=== PATIENT | male | born 1950 | race Caucasian/White ===

== ENCOUNTER 2024-06-17 08:10 | Emergency (ER) | payer MEDICARE ==
[~2024-06-17] VITALS: Ht 175.3 cm; Wt 114.0 kg
[2024-06-17] MEDS ORDERED: METHYLPREDNISOLO4 M1 PO (09:27)
[2024-06-17] MEDS ORDERED: HYDROCODON-ACE1 EA11 PO (09:27)
[2024-06-17] MEDS ORDERED: LIDOCAINE HCL 4% 1 EACH PATCH TD ONE (09:30)
[2024-06-17] MEDS ORDERED: KETOROLAC TROMETHAMINE 30 MG/ML VIAL IM ONE (09:30)
[2024-06-17] MEDS ORDERED: HYDROCODONE/ACETA 7.5/325 TAB PO ONE (09:30)
[2024-06-17 10:13] VITALS: BP 162/96
[2024-06-17] MEDS ORDERED: LIDOCAINE PATCH REMOVAL 1 EA TD SCH (21:00)
== END 2024-06-17 10:12 | disposition home or self-care (01) ==
LOC: ED 08:10
DX: M54.32 Sciatica, left side (principal)
CPT/HCPCS: 96372; 99283-25; A9270; J1885